=== PATIENT | female | born 1990 | race Caucasian/White ===

== ENCOUNTER 2018-04-16 17:38 | Outpatient (CLI) | END 2018-04-16 21:48 | disposition home or self-care (01) ==

== ENCOUNTER 2018-05-04 05:40 | Inpatient (IN) | payer MEDICAID ==
[~2018-05-04] VITALS: Ht 162.6 cm; Wt 107.1 kg
[~2018-05-04 05:40] MED LIST: PREN1TAB71 PO
[2018-05-04 05:50] VITALS: Ht 162.6 cm; Wt 107.1 kg
[2018-05-04] MEDS ORDERED: LACTATED RINGER'S 1,000 ML IV SCH ×2 (05:50→10:39)
[2018-05-04] MEDS ORDERED: MISOPROSTOL 200 MCG TAB PR PRN ×2 (06:00→11:00)
[2018-05-04] MEDS ORDERED: OXYTOCIN 30 UNITS/LR 500 ML IV PRN ×2 (06:00→11:00)
[2018-05-04] MEDS ORDERED: CARBOPROST 250 MCG INJ IM PRN ×2 (06:00→11:00)
[2018-05-04] MEDS ORDERED: OXYTOCIN 30 UNITS/LR 500 ML IV SCH (06:00)
[2018-05-04] MEDS ORDERED: METHYLERGONOVINE 0.2 MG INJ IM PRN ×2 (06:00→11:00)
[2018-05-04] MEDS ORDERED: CLINDAMYCIN 900 MG/D5W (PMX) 50 ML IVPB SCH (06:30)
[2018-05-04 06:44] VITALS: BP 112/82; PULSE 102; RESP 18
--- NOTE | 2018-05-04 07:00 | HP ---
Date/Time of Note Date/Time of Note DATE: 05/04/18 TIME: 06:55 OB - History Hx of Present Free Text/Dictation 27y.o at 40w1d here for elective repeat c/s and BTL VE closed CAT I tracing care was unevenful admitted for repeat c/s and btl Chief Complaint: for RC/S and BTL Estimated Due Date: May 03, 2018 : 3 Para: 2 Spontaneous : 0 Therapeutic : 0 Care: Good Care Ultrasounds: Normal mid trimester US Obstetrical Complications: None Medical Complications: None Past Family/Social History * Past Medical, Surgical, Family and Obstetric Histories reviewed from chart. Blood Type: O+ Rubella: immune RPR/VDRL: Negative GBS Status: Negative HBsAG: Negative OB Admission Exam Vital Signs Vital Signs Vital Signs Date Temp Pulse Resp B/P (MAP) Pulse Ox O2 O2 Flow FiO2 Time Delivery Rate 05/04/18 98.8 102 18 112/82 06:44 (92) Physical Exam HEENT: WNL Heart: Rhythm Normal Lungs: Clear, Equal Abdomen: WNL Extremities: Normal Reflexes: Normal Cervical Dilatation: None Effacement: 0% Station: -3 Membranes: Intact Amniotic Fluid: Unevaluable Heart Rate: 140's Accelerations: Accelerations Present Decelerations: No Decelerations Varibility: Moderate Contractions on Admission: None Last 72 hours Lab Results CBC & BMP 05/04/18 05:50 OB Assessment/Plan Reason for admission: section Other Assessment: IUP 40w1d Plan: Section, Other ( BTL) DHAVAL VILLA MD May 04, 2018 07:00
--- NOTE | 2018-05-04 07:06 | PREAC ---
Date/Time of Note Date/Time of Note DATE: 05/04/18 TIME: 07:05 Anesthesia Eval and Record Evaluation Time Pre-Procedure Interview DATE: 05/04/18 TIME: 07:05 Age 27 Sex female NPO: 8 hrs Preoperative diagnosis iup at 39 weeks Planned procedure repeat c section Past Medical History Past Medical History: Includes GI: Obesity Surgery & Anesthesia Issues No known issue Meds Anticoagulation: No Beta Courtney within 24 hr: No Reason Beta Courtney not given: Pt. not on B-Courntey Reported Medications Vit No.130/Iron/FA ( Tablet) 1 Each Tablet, 1 EACH PO, TAB 04/16/18 Current Medications Lactated Ringer's 1,000 ml @ 125 mls/hr Q8H IV Last administered on 05/04/18at 06:42; Admin Dose 125 MLS/HR; Start 05/04/18 at 05:50 Oxytocin/Lactated Ringer's 500 ml @ 125 mls/hr POST IV ; Start 05/04/18 at 06:00 Oxytocin/Lactated Ringer's 500 ml @ 0 mls/hr ONCE PRN IV VAGINAL BLEEDING; Start 05/04/18 at 06:00 Methylergonovine Maleate (Methergine) 0.2 mg ONCE PRN IM VAGINAL BLEEDING; Start 05/04/18 at 06:00 Carboprost Tromethamine (Hemabate) 250 mcg ONCE PRN IM VAGINAL BLEEDING; Start 05/04/18 at 06:00 Misoprostol (Cytotec) 1,000 mcg ONCE PRN ND VAGINAL BLEEDING; Start 05/04/18 at 06:00 Clindamycin HCl/ Dextrose 50 ml @ 50 mls/hr ONCE IVPB ; Start 05/04/18 at 06:30 Meds reviewed: Yes Allergies Coded Allergies: Penicillins (Verified Allergy, Unknown, 04/16/18) Allergies Reviewed: Yes Labs/Studies Labs Reviewed: Reviewed by anesthesiologist Result Diagram: 05/04/18 0550 Laboratory Tests 05/04/18 05:50 test: Positive Pre-procedure Exam Last vitals Vital Signs Date Temp Pulse Resp B/P (MAP) Pulse Ox O2 O2 Flow FiO2 Time Delivery Rate 05/04/18 98.8 102 18 112/82 06:44 (92) Airway: Adequate mouth opening, Adequate thyromental dist Mallampati: Mallampati II Teeth: Normal Lung: Normal Heart: Normal ASA Physical Status ASA physical status: 2 Emergency: None Planned Anesthetic Neuraxial: Spinal Planned Pain Management Sub-arachniod narcotics, Parenteral pain med Pre-operative Attestations Prior to commencing anesthesia and surgery, the patient was re-evaluated, there was verification of: *The patient's identity *The results of appropriate recent lab work and preoperative vital signs *The above evaluation not changing prior to induction *Anesthetic plan, risk benefits, alternative and complications discussed with patient/family; questions answered; patient/family understands, accepts and wishes to proceed. NORM KINCAID May 04, 2018 07:06
[2018-05-04] MEDS ORDERED: FENTAnyl 50 MCG/ML VIAL ONE (07:09)
[2018-05-04] MEDS ORDERED: morphine SULFATE/PF (10 MG/10 ML) INJ ONE (07:09)
[2018-05-04] MEDS ORDERED: PHENYLephrine (100 MCG/ML) 10ML SYG ONE (07:13)
[2018-05-04] MEDS ORDERED: DEXAMETHASONE 4 MG/ML 1 ML INJ ONE (07:28)
[2018-05-04] MEDS ORDERED: ONDANSETRON 4 MG INJ ONE (07:28)
[2018-05-04] MEDS ORDERED: HYDROmorphONE 0.5 MG/0.5 ML SYG IV PRN ×2 (08:00)
[2018-05-04] MEDS ORDERED: KETOROLAC 30 MG INJ IV PRN (08:00)
[2018-05-04] MEDS ORDERED: ONDANSETRON 4 MG INJ IV PRN ×2 (08:00→11:00)
[2018-05-04] MEDS ORDERED: ZOLPIDEM 5 MG TAB PO PRN ×2 (08:00→11:00)
[2018-05-04] MEDS ORDERED: NALOXONE (0.4 MG/ML) INJ IV PRN (08:00)
[2018-05-04] MEDS ORDERED: DIPHENHYDRAMINE 50 MG INJ IV PRN ×2 (08:00→11:00)
--- NOTE | 2018-05-04 08:29 | OPPN ---
Date/Time of Note Date/Time of Note DATE: 05/04/18 TIME: 08:25 Operative Report Planned Procedure Procedure date May 04, 2018 Procedure(s) RLTCS and BTL Performed by see signature line Talent Acquisition Project Manager: NELA BALTAZAR M.D. 2nd Talent Acquisition Project Manager none Anesthesiologist: NORM KINCAID Pre-procedure diagnosis same as above delivered normal female infant Cdieb2Od Anesthesia Type: Bcaaj1b spinal Post-Procedure Post-procedure diagnosis delivered normal male Findings Live Baby [female], Apgars [8] and [9], weight [6lb9oz, position [ROT], Vx[] presentation [x1]cord. Estimated Blood Loss: 400 - 500 mls Specimen(s) none Grafts/Implant(s) none Complication(s) none DHAVAL VILLA MD May 04, 2018 08:29
--- NOTE | 2018-05-04 10:44 | PAC ---
Date/Time of Note Date/Time of Note DATE: 05/04/18 TIME: 10:43 Post-Anesthesia Notes Post-Anesthesia Note Last documented vital signs Vital Signs Date Temp Pulse Resp B/P (MAP) Pulse Ox O2 O2 Flow FiO2 Time Delivery Rate 05/04/18 98.8 102 18 112/82 10:42 (92) Activity: WNL Respiratory function: WNL Cardiovascular function: WNL Mental status: Baseline Pain reasonably controlled: Yes Hydration appropriate: Yes Nausea/Vomiting absent: Yes NORM KINCAID May 04, 2018 10:44
[2018-05-04] MEDS ORDERED: OXYCODONE/ACETAMINOPHEN (5/325) TAB PO PRN ×2 (11:00)
[2018-05-04] MEDS ORDERED: LANOLIN HPA 1 PKT TOP PRN (11:00)
[2018-05-04 11:04] VITALS: BP 127/66; PULSE 69; RESP 18
--- NOTE | 2018-05-04 12:32 | OPR ---
DATE OF OPERATION: 05/04/2018 PREOPERATIVE DIAGNOSES: at 40 weeks and 1 day with 2 previous sections for repeat and tubal sterilization. POSTOPERATIVE DIAGNOSES: at 40 weeks and 1 day with 2 previous sections for repea t and tubal sterilization, delivered normal female . OPERATION PERFORMED: Repeat low transverse section, bilateral salpingectomy. ANESTHESIA: Spinal. ANESTHESIOLOGIST: Fredrick Jacobson MD SURGEON: Andrzej Wilson MD OLIVE BRINE TESTER: Lukasz Sweeney MD ESTIMATED BLOOD LOSS: Approximately 500 mL. PROCEDURE IN DETAILS: Under the proper induction of spinal anesthesia, the patient was placed in fro g position. Comer catheter was introduced under sterile condition, repositioned to supine. Abdomina l wall was prepped and draped in usual aseptic manner. A transverse incision was made approximately 2 fingers above the pubic rami. Incision was carried down through the subcutaneous tissue to the rec ti fascia which was incised transversely in length of the incision. Fascial flap was created by blun t and sharp dissection of tendinous attachment. Two rectus muscles split in midline. Peritoneal cav ity was entered. Low portion of uterus was exposed. A transverse incision was made above the uterov esical reflection. Incision was carried down layer by layer until reaching the amniotic membrane, ru ptured, revealed clear amniotic fluid. Normal female infant was born from right occiput transverse p osition. Mouth and nose were cleaned. Cord was delayed clamped and cut and handed to the respirator y care personnel for further care. Cord blood was obtained. Placenta was removed manually. Cavity was completely explored after uterus was exteriorized. Uterine incision was closed using #1 chromic catgut in continuous manner on the first layer. Second layer was reinforced with 0 chromic catgut in continuous manner. No bleeder was noted. Left fallopian tube was grasped with a Dmitry forceps an d the fimbria was doubly ligated with 0 plain and the portion of fimbria was removed from the operati ve field. No bleeder was noted. On right side, the fimbria was lifted up and this was doubly ligate d with 0 plain and the fimbria was removed from the operative field. No bleeder was noted. The abdo valarie cavity was irrigated with water. Sponge count was taken which was correct after the uterus was relocated in abdominal cavity. Both fallopian tubes were checked for bleeder, which was intact. In cisional site was intact also for the bleeding. Parietal peritoneum was closed using 0 chromic catgu t in continuous manner. Muscle was closed with 0 chromic catgut in continuous manner. Fascia was cl osed with a #1 Vicryl in continuous and interrupted manner in 2 segments. Subcutaneous tissue was ir rigated with water. This layer was approximated with a 2-0 plain in continuous manner after the adeq uate hemostasis secured. Skin was closed with Insorb. Pressure dressing was applied. Estimated blo od loss was approximately 500 mL. Urine output was approximately 200 mL. The patient withstood proc edure well and was sent to the recovery room in stable condition. Dictated By: ANDRZEJ PLATA/FRAN Conf#: [id number] DID#: [id number]
[2018-05-04 16:00] VITALS: BP 120/65; PULSE 66; RESP 18
[2018-05-04 20:00] VITALS: BP 101/54; PULSE 71; RESP 18
[2018-05-04] MEDS: SENNA/DOCUSATE NA (8.6MG/50MG) TAB PO SCH (20:40)
[2018-05-05 00:39] VITALS: BP 112/63; PULSE 74; RESP 16
[2018-05-05 04:38] VITALS: BP 98/56; PULSE 77; RESP 16
[2018-05-05] MEDS ORDERED: INFLUENZA VIRUS VACCINE 0.5 ML (DISPENSING) IM* ONE (09:00)
[2018-05-05 09:13] VITALS: BP 107/78; PULSE 86; RESP 19
[2018-05-05] MEDS: SENNA/DOCUSATE NA (8.6MG/50MG) TAB PO SCH ×2 (09:59→20:45)
[2018-05-05 11:57] VITALS: BP 109/70; PULSE 71; RESP 17
[2018-05-05] MEDS: IBUPROFEN 600 MG TAB PO SCH ×2 (12:00→17:32)
[2018-05-05 15:50] VITALS: BP 108/60; PULSE 87; RESP 18
--- NOTE | 2018-05-05 16:00 | OPPN ---
Date/Time of Note Date/Time of Note DATE: 05/05/18 TIME: 15:59 Anesthesia Follow up Anesthesia Follow up Last documented vital signs Vital Signs Date Temp Pulse Resp B/P (MAP) Pulse Ox O2 O2 Flow FiO2 Time Delivery Rate 05/05/18 98.4 87 18 108/60 Room Air 15:50 (76) 05/05/18 96 09:13 Respiratory function: WNL Cardiovascular function: WNL Comments satisfactory post operative pain management with intrathecal duramorph. no complications noted. NORM KINCAID May 05, 2018 16:00
--- NOTE | 2018-05-05 18:07 | QN ---
Documentation Comment VSS afebrile no c/o flatus pos with small BM abdomen soft wound dry calf neg for tenderness lochia min STable DHAVAL VILLA MD May 05, 2018 18:07
[2018-05-05 19:50] VITALS: BP 108/69; PULSE 77; RESP 18
[2018-05-06 03:30] VITALS: BP 111/67; PULSE 75; RESP 18
[2018-05-06] MEDS: IBUPROFEN 600 MG TAB PO SCH ×3 (06:00→12:07)
[2018-05-06 08:30] VITALS: BP 114/83; PULSE 86; RESP 18
[2018-05-06] MEDS: SENNA/DOCUSATE NA (8.6MG/50MG) TAB PO SCH (10:03)
[2018-05-06 16:00] VITALS: BP 116/80; PULSE 75; RESP 18
--- NOTE | 2018-05-06 16:40 | PD.PPDC ---
S[employer]OL EXAMINER Discharge Instruction Diagnosis [id number] Final Diagnosis: Fpiyw1d s/p R C/S and BTL Condition Hgdtr7Ag Patient Condition: Kpchk6n Stable Diet Xfryr9Kt Diet: Alqve7g Resume Regular Diet Activity/Restrictions [id number] Activity: Wgehc3k May Shower Juadn1Gm Restrictions: Zohxl9j No Exercising No Lifting No Driving No Sexual Activity Nothing in the Vagina No [place] No Tampons, douche Wound/Drain Care Instructions [id number] Wound/Drain Care Homfq2g Remove Steri Strips in 2 Instructions: weeks Wash with soap and water Keep clean and dry Follow-up Follow-up with Physician: 2, Week/Weeks Return to clinic for Somoh8Vk SOCIAL WORK MSW Instructions: Cfvbp5e Fever greater than 101 Chills Worsening abdominal pain Excessive Vaginal Bleeding More than 2 pads per hour Unable to tolerate diet [id number] OB Instructions: Pbhtz1l Breast Tenderness Depression Blurried Vision Headache [id number] Surgical Instructions: Pkkfp2w Incisional Drainage Incisional Redness DHAVAL VILLA MD May 06, 2018 16:40
--- NOTE | 2018-05-06 16:42 | DS ---
Date/Time of Note Date/Time of Note DATE: 05/06/18 TIME: 16:41 Obstetrical Discharge Record Final Diagnosis Final Diagnosis: Term delivered Vaginal Delivery Obstetrical Delivery: Bilateral Tubal Ligation Section Section: Repeat Complications Augmentation: No Induction: No Rupture of Membranes: No Condition on Discharge Physical Assessment Last Vitals: vss afebrile Voiding: Yes Bowel Movement: Yes Breast: Soft, non-tender Fundus: Firm Abdomen and Incision: soft wound dry Episiotomy: n/a Calf Tenderness: No Patient Condition: Stable DHAVAL VILLA MD May 06, 2018 16:42
[2018-05-07] MEDS ORDERED: DIPHTH/TET/ACEL PERTUSS (ADULT) 0.5 ML VIAL IM* ONE (09:00)
== END 2018-05-06 17:50 | disposition home or self-care (01) | DRG 785 ==
LOC: L-D 05:40 → PP1 10:57
PROVIDERS: ADMIT Obstetrics & Gynecology; ATTEND Obstetrics & Gynecology
PROC: 0UT70ZZ Resection of Bilateral Fallopian Tubes, Open Approach (ICD-10-PCS; 2018-05-04)
PROC: 10D00Z1 Extraction of Products of Conception, Low, Open Approach (ICD-10-PCS; principal; 2018-05-04 07:30)
DX: O48.0 Post-term pregnancy (principal); Z30.2 Encounter for sterilization; Z3A.40 40 weeks gestation of pregnancy; Z37.0 Single live birth
CPT/HCPCS: 85025; 85610; 85730; 86592; 86850; 86900; 86901; 87340; 88302; 90686; 99464; J1100; J2274; J2370; J2405; J2590; J3010; J7120